=== PATIENT | female | born 1950 | race Caucasian/White ===

== ENCOUNTER → 2020-05-22 | Outpatient (CLI) | payer MEDICARE, OTHER ==
[~2020-05-22] MED LIST: ASPIRIN EC81 MG PO; ASPIRIN325 MG PO; CALCIUM500 MG PO; CLOPIDOGREL75 MG PO; FISH OIL 1,0001 EACH PO; GABAPENTIN300 MG PO; GLUCOSAMINE1000 MG PO; GLUCOTROL 10 MG10 MG PO; LISINOPRIL10 MG PO; LORTAB 7.5-3251 EACH PO; METFORMIN HCL1000 MG PO; NEXIUM20 MG PO; PRAVACHOL20 MG PO; TYLENOL 8 HOUR650 MG PO; VICTOZA 1818 MG/3 ML SC; VITAMIN B12-FO1 EACH PO
== END ==
LOC: MAMO 09:00
DX: Z12.31 Encounter for screening mammogram for malignant neoplasm of breast (principal)
CPT/HCPCS: 77063; 77067

== ENCOUNTER → 2020-07-02 | Outpatient (CLI) | payer MEDICARE, OTHER ==
[2020-07-02 09:07] LABS: HEMOGLOBIN 12.8 gm/dl (12.3-15.3); RED BLOOD COUNT 4.29 M/UL (4.00-5.10); WHITE BLOOD COUNT 3.9 K/UL (4.5-11.0)
[2020-07-02 09:31] LABS: BUN/CREATININE RATIO 30 (0-10)
== END ==
LOC: LAB 08:29
PROVIDERS: Family Medicine
DX: E78.2 Mixed hyperlipidemia (principal)
CPT/HCPCS: 36415; 80053; 80061; 85027

== ENCOUNTER → 2020-09-18 | Outpatient (CLI) | payer MEDICARE ==
[2020-09-18 10:42] LABS: BUN/CREATININE RATIO 25 (0-10)
== END ==
LOC: LAB 09:47
PROVIDERS: Family Medicine
DX: E11.9 Type 2 diabetes mellitus without complications (principal); E55.9 Vitamin D deficiency, unspecified
CPT/HCPCS: 36415; 80053; 82570; 84156

== ENCOUNTER → 2020-11-19 | Outpatient (CLI) | payer MEDICARE ==
[2020-11-19 10:34] LABS: BUN/CREATININE RATIO 28 (0-10)
== END ==
LOC: LAB 09:24
PROVIDERS: Family Medicine
DX: E78.2 Mixed hyperlipidemia (principal); K21.9 Gastro-esophageal reflux disease without esophagitis; Z79.899 Other long term (current) drug therapy
CPT/HCPCS: 36415; 80053; 80061; 82607; 83735

== ENCOUNTER → 2020-11-22 | Outpatient (CLI) | payer MEDICARE | LOC: RAD 08:50 | DX: M54.2 Cervicalgia (principal); M47.22 Other spondylosis with radiculopathy, cervical region | CPT/HCPCS: 72040 ==

== ENCOUNTER → 2021-04-15 | Outpatient (CLI) | payer MEDICARE | LOC: EXRD 09:00 | DX: M85.852 Other specified disorders of bone density and structure, left thigh (principal); M85.88 Other specified disorders of bone density and structure, other site; Z78.0 Asymptomatic menopausal state; Z87.39 Personal history of other diseases of the musculoskeletal system and connective tissue | CPT/HCPCS: 77080 ==

== ENCOUNTER → 2021-04-22 | Outpatient (CLI) | payer MEDICARE | LOC: EXRD 10:18 | DX: Z13.6 Encounter for screening for cardiovascular disorders (principal) | CPT/HCPCS: 76706 ==

== ENCOUNTER → 2021-06-17 | Outpatient (CLI) | payer MEDICARE ==
[2021-06-17 08:40] LABS: HEMOGLOBIN 8.4 gm/dl (12.3-15.3); RED BLOOD COUNT 3.65 M/UL (4.00-5.10); WHITE BLOOD COUNT 2.3 K/UL (4.5-11.0)
[2021-06-18 06:12] LABS: A/G RATIO 1.3 (1.2-2.2); ALKALINE PHOSPHATASE, S 63 IU/L (44-121); ALT (SGPT) 8 IU/L (0-32); AST (SGOT) 17 IU/L (0-40); BILIRUBIN, TOTAL 0.4 mg/dL (0.0-1.2); BUN 9 mg/dL (8-27); BUN/CREATININE RATIO 16 (12-28); CARBON DIOXIDE, TOTAL 21 mmol/L (20-29); CHLORIDE, SERUM 102 mmol/L (96-106); CHOLESTEROL, TOTAL 111 mg/dL (100-199); CREATININE, SERUM 0.58 mg/dL (0.57-1.00); EGFR IF AFRICN AM 107 (>59); EGFR IF NONAFRICN AM 93 (>59); FERRITIN 6 ng/mL (15-150); GLUCOSE, SERUM 214 mg/dL (65-99); HDL CHOLESTEROL 42 mg/dL (>39); IRON BIND.CAP.(TIBC) 468 ug/dL (250-450); IRON SATURATION 6 % (15-55); IRON, SERUM 30 ug/dL (27-139); LDL CHOLESTEROL CALC 48 mg/dL (0-99); LDL/HDL RATIO 1.1 ratio (0.0-3.2); MAGNESIUM 1.5 mg/dL (1.6-2.3); POTASSIUM, SERUM 4.1 mmol/L (3.5-5.2); SODIUM, SERUM 138 mmol/L (134-144); T. CHOL/HDL RATIO 2.6 ratio (0.0-4.4); TRIGLYCERIDES 119 mg/dL (0-149); UIBC 438 ug/dL (118-369); VITAMIN D, 25-HYDROXY 50.6 ng/mL (30.0-100.0)
== END ==
LOC: MAMO 05-22 10:30
PROVIDERS: Family Medicine
DX: Z12.31 Encounter for screening mammogram for malignant neoplasm of breast (principal); D50.9 Iron deficiency anemia, unspecified; E55.9 Vitamin D deficiency, unspecified; Z79.899 Other long term (current) drug therapy
CPT/HCPCS: 36415; 77063; 77067; 80053; 80061; 82607; 82728; 83540; 83550; 83735; 85027

== ENCOUNTER → 2022-01-14 | Outpatient (CLI) | payer MEDICARE | LOC: RAD 11:49 | DX: M79.644 Pain in right finger(s) (principal) | CPT/HCPCS: 73130 ==